=== PATIENT | female | born 1955 | race Caucasian/White ===

== ENCOUNTER 2018-08-18 14:57 | Emergency (ER) | payer BC ==
--- NOTE | 2018-08-18 15:08 | PDOC ---
History of Present Illness - General Chief Complaint: Psychiatric Stated Complaint: SCRATCH TO LEFT ARM AND PT ANXIOUS Time Seen by Provider: 08/18/18 15:02 History Source: Patient Exam Limitations: No Limitations - History of Present Illness Initial Comments: 08/18/18 15:02 62 y/o female having a panic attack due a dog jumping on her left side. Denies being bit and states to be up to date with Tetanus. Had a dog bite 10 years ago and never got over it. Denies bleeding or pain. This morning notice an abrasion to left arm. No swelling redness or pain. Dog was on a leash with its marker machine attendant. Wore multiple layers of clothing and coat with no tear to clothes. Also took anxiety medication last night. No chest pain, SOB or palpitations. Past History - Past Medical History Allergies/Adverse Reactions: Allergies Allergy/AdvReac Type Severity Reaction Status Date / Time No Known Allergies Allergy Unverified 08/18/18 14:59 Home Medications: Ambulatory Orders Alprazolam [Xanax] 0.5 mg PO PRN 08/18/18 Review of Systems - Review of Systems Able to Perform ROS?: Yes Is the patient limited Stateless proficient: No Constitutional: No: Chills, Fever Respiratory: No: Cough, Shortness of Breath Cardiac (ROS): No: Chest Pain ABD/GI: No: Nausea, Vomiting : No: Burning, Dysuria Musculoskeletal: No: Back Pain Integumentary: No: Bruising, Erythema All Other Systems: Reviewed and Negative *Physical Exam - Physical Exam General Appearance: Yes: Nourished, Appropriately Dressed. No: Apparent Distress HEENT: positive: EOMI, MAYLIN, Normal ENT Inspection, Normal Voice, Symmetrical, Pharynx Normal Neck: positive: Trachea midline, Normal Thyroid, Supple. negative: Tender, Rigid Respiratory/Chest: positive: Lungs Clear, Normal Breath Sounds. negative: Chest Tender Cardiovascular: positive: Regular Rhythm, Regular Rate, S1, S2. negative: Edema , JVD, Murmur Vascular Pulses: Femoral (R): 4+, Femoral (L): 4+, Carotid (R): 4+, Carotid (L) : 4+, Dorsalis-Pedis (R): 4+, Doralis-Pedis (L): 4+ Gastrointestinal/Abdominal: positive: Normal Bowel Sounds, Flat, Soft. negative : Tender, Organomegaly, Pulsatile Mass Lymphatic: negative: Adenopathy, Tenderness, Other Musculoskeletal: positive: Normal Inspection. negative: CVA Tenderness Extremity: positive: Normal Capillary Refill, Normal Inspection, Normal Range of Motion Integumentary: positive: Normal Color, Dry, Warm. 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 NML intact, Fully Oriented, Alert, Normal Mood/ Affect, Normal Response, Motor Strength 12/22 ED Treatment Course - ADDITIONAL ORDERS Additional order review: 08/18/18 15:08 Pt with abrasion to left arm, does not appear to be a dog bite, appears old UTD with Tetanus Panic attack If worsen return to ER Patient is in agreement with plan *DC/Admit/Observation/Transfer Diagnosis at time of Disposition: Panic attack Abrasion of arm, left Qualifiers: Encounter type: initial encounter Qualified Code(s): S40.812A - Abrasion of left upper arm, initial encounter - Discharge Dispostion Disposition: HOME Condition at time of disposition: Stable Decision to Admit order: No - Referrals - Patient Instructions Printed Discharge Instructions: DI for Abrasion, DI for Panic Disorder Additional Instructions: Keep area clean Continue current medications as needed If worsen return to ER - Post Discharge Activity
[2018-08-18 15:16] VITALS: BP 141/73; PULSE 84; TEMP 97.8; BMI 21.2
== END 2018-08-18 15:15 | disposition home or self-care (01) ==
LOC: FER 14:57
DX: S40.812A Abrasion of left upper arm, initial encounter (principal); W54.0XXA Bitten by dog, initial encounter; Y93.89 Activity, other specified; Y92.89 Other specified places as the place of occurrence of the external cause
CPT/HCPCS: 99281-25